=== PATIENT | male | born 2000 | race Hispanic/Latino ===

== ENCOUNTER 2020-02-22 08:19 | Emergency (ER) | payer SELFPAY ==
[2020-02-22] MEDS ORDERED: NA CHLORIDE 0.9% 1,000 ML ONE (08:39)
[2020-02-22] MEDS ORDERED: ONDANSETRON 4 MG/2 ML VIAL ONE (08:39)
[2020-02-22 08:55] LABS: Absolute Lymphocytes (CBC) 1.4 K/uL (0.7-4.9); Basophils % 0.4 % (0-1.3); Hematocrit 45.5 % (39.6-49.0); Lymphocytes % 17.4 % (15.3-44.8); MPV 8.5 fL (7.6-11.3); RBC Red Blood Cell Count 5.49 M/uL (4.33-5.43)
[2020-02-22 08:59] LABS: Protime INR 0.94
[2020-02-22 09:23] LABS: ALT/SGPT 36 U/L (12-78); AST/SGOT 26 U/L (15-37); Albumin 4.5 g/dL (3.4-5.0); Alkaline Phosphatase 82 U/L (45-117); BUN Blood Urea Nitrogen 9 mg/dL (7-18); Bicarbonate 25 mmol/L (21-32); Bilirubin Direct < 0.1 mg/dL (0-0.2); Bilirubin Total 0.1 mg/dL (0.2-1.0); Glucose Level 119 mg/dL (74-106); Protein, Total 8.9 g/dL (6.4-8.2); Sodium Level 140 mmol/L (136-145)
--- NOTE | 2020-02-22 09:50 | ER ---
Nurse's Notes [facility] Name: Fernando Lugo Age: 19 yrs Sex: Male : 2000 Arrival Date: 02/22/2020 Time: 08:20 Bed 5 Private MD: Diagnosis: Alcohol abuse with intoxication Presentation: 02/21 08:21 Chief complaint: EMS states: pts friends states that since 8pm last night they were tw2 drinking 24+ cans of beer and 8+ cans of twisted teas, friends called cause he was unresponsive, there was vomit all over the ground, he was unresponsive when we were loading him up, got him down stairs and strapped in the back then he woke up and started talking to us, vs stable. Coronavirus screen: At this time, the client does not indicate any symptoms associated with coronavirus-19. Ebola Screen: Patient denies travel to an Ebola-affected area in the 21 days before illness onset. 08:21 Method Of Arrival: EMS: [facility] tw2 08:23 Initial Sepsis Screen: Does the patient meet any 2 criteria? No. Patient's initial tw2 sepsis screen is negative. Does the patient have a suspected source of infection? No. Patient's initial sepsis screen is negative. Risk Assessment: Do you want to hurt yourself or someone else? Patient reports no desire to harm self or others. Onset of symptoms was February 22, 2020. 08:23 Acuity: [place] 3 tw2 Triage Assessment: 08:25 General: Appears in no apparent distress. Behavior is cooperative, talkative. Pain: tw2 Denies pain. GI: Reports "i can handle my alcohol, i am not going to be sick" emesis back placed on bedside table at this time. Historical: - Allergies: 08:24 No Known Allergies; tw2 - Home Meds: 08:24 None [Active]; tw2 - PMHx: 08:24 None; tw2 - Immunization history:: Adult Immunizations. - Social history:: Smoking status: . Screenin:10 Abuse screen: Denies threats or abuse. Nutritional screening: No deficits noted. tw2 Tuberculosis screening: No symptoms or risk factors identified. Fall Risk Secondary diagnosis (15 points) impaired mobility. Assessment: 08:20 General: Appears in no apparent distress. Behavior is cooperative. Pain: Denies pain. tw2 Neuro: Level of Consciousness is awake, alert, obeys commands, Oriented to person, situation. Cardiovascular: Heart tones S1 S2 Patient's skin is warm and dry. Respiratory: Airway is patent Respiratory effort is even, unlabored, Respiratory pattern is regular, symmetrical, Breath sounds are clear bilaterally. GI: Abdomen is flat, Bowel sounds present X 4 quads. : EENT: No signs and/or symptoms were reported regarding the EENT system. Derm: Musculoskeletal: Circulation, motion, and sensation intact. Range of motion: intact in all extremities. 09:08 Reassessment: Patient appears in no apparent distress at this time. No changes from tw2 previously documented assessment. Patient and/or family updated on plan of care and expected duration. Pain level reassessed. pts sister is at bedside at this time. 10:09 Reassessment: Patient appears in no apparent distress at this time. No changes from tw2 previously documented assessment. Patient and/or family updated on plan of care and expected duration. Pain level reassessed. Vital Signs: 08:21 BP 130 / 93; Pulse 99; Resp 17; Temp 98.7(TE); Pulse Ox 100% on R/A; tw2 09:07 BP 100 / 81; Pulse 91; Resp 17; Pulse Ox 100% on R/A; tw2 10:09 BP 106 / 59; Pulse 88; Resp 17; Pulse Ox 99% on R/A; tw2 ED Course: 08:20 Patient arrived in ED. tw2 08:20 Placed in gown. Bed in low position. Call light in reach. quality assurance monitor final on. Pulse ox tw2 on. NIBP on. Warm blanket given. 08:21 Amy Godfrey FNP-C is PHCP. kb 08:21 Gerardo Wolfe MD is Attending Physician. kb 08:23 Triage completed. tw2 08:24 Arm band placed on. tw2 08:45 EKG done, by ED staff, reviewed by Amy NGUYEN. sv 08:48 Initial lab(s) drawn, by ok, sent to lab. Inserted saline lock: 20 gauge in right hand, em1 using aseptic technique. Blood collected. 08:55 Ibeth Perez RN is Primary Nurse. tw2 10:10 No provider procedures requiring assistance completed. IV discontinued, intact, tw2 bleeding controlled, No redness/swelling at site. Pressure dressing applied. Administered Medications: 08:55 Drug: NS 0.9% 1000 ml Route: IV; Rate: 1000 ml; Site: right hand; tw2 10:09 Follow up: Response: No adverse reaction; IV Status: Completed infusion; IV Intake: tw2 1000ml 08:55 Drug: Zofran (Ondansetron) 4 mg Route: IVP; Site: right hand; tw2 10:10 Follow up: Response: No adverse reaction; Nausea is decreased tw2 09:45 CANCELLED (Duplicate Order): NS 0.9% 1000 ml IV at 1000 ml once kb Intake: 10:09 IV: 1000ml; Total: 1000ml. tw2 Outcome: 09:49 Discharge ordered by . kb 10:10 Discharged to home ambulatory, with family. tw2 10:10 Condition: stable 10:10 Discharge instructions given to patient, family, Instructed on discharge instructions, follow up and referral plans. Demonstrated understanding of instructions, follow-up care. 10:11 Patient left the ED. tw2 Signatures: Amy Godfrey, SUPER[employer]OR [employer]-C [employer]-Bianca Sam, RN RN Silas Liz em1 Ibeth Perez RN RN tw2 Corrections: (The following items were deleted from the chart) 10:10 08:20 Pulse ox on. NIBP on. tw2 tw2
--- NOTE | 2020-02-22 09:50 | EDPHYS ---
Physician Documentation [facility] Name: Fernando Lugo Age: 19 yrs Sex: Male : 2000 Arrival Date: 02/22/2020 Time: 08:20 Bed 5 Private MD: ED Physician Gerardo Wolfe HPI: 02/21 09:46 This 19 yrs old Male presents to ER via EMS with complaints of Vomiting, kb alcohol abuse. 09:46 The patient presents to the emergency department with nausea, vomiting. Onset: The kb symptoms/episode began/occurred just prior to arrival. Possible causes: alcohol. The symptoms are aggravated by nothing. The symptoms are alleviated by nothing. Associated signs and symptoms: Pertinent positives: nausea, vomiting, Pertinent negatives: abdominal pain, anorexia, belching, constipation, diarrhea, dysuria, fever, flatulence, GI bleeding, hematuria. Severity of symptoms: At their worst the symptoms were moderate in the emergency department the symptoms are unchanged. The patient has not experienced similar symptoms in the past. The patient has not recently seen a physician. EMS called for unresponsive pt. EMS reports pt was unresponsive when they arrived on scene, but woke up after getting him into ambulance. Pt and friends report pt has been drinking alcohol since 1999 last night. Pt has been vomiting as well. Pt obviously under the influence of alcohol. Pt has no complaints. . Historical: - Allergies: 08:24 No Known Allergies; tw2 - Home Meds: 08:24 None [Active]; tw2 - PMHx: 08:24 None; tw2 - Immunization history:: Adult Immunizations. - Social history:: Smoking status: . ROS: 09:46 Constitutional: Negative for fever, chills, and weight loss, Cardiovascular: Negative kb for chest pain, palpitations, and edema, Respiratory: Negative for shortness of breath, cough, wheezing, and pleuritic chest pain, Abdomen/GI: Negative for abdominal pain, nausea, vomiting, diarrhea, and constipation, Back: Negative for injury and pain, MS/Extremity: Negative for injury and deformity, Skin: Negative for injury, rash, and discoloration, Neuro: Negative for headache, weakness, numbness, tingling, and seizure. Exam: 08:47 Constitutional: This is a well developed, well nourished patient who is awake, alert, kb and in no acute distress. Head/Face: Normocephalic, atraumatic. Chest/axilla: Normal chest wall appearance and motion. Nontender with no deformity. No lesions are appreciated. Cardiovascular: Regular rate and rhythm with a normal S1 and S2. No gallops, murmurs, or rubs. Normal PMI, no JVD. No pulse deficits. Respiratory: Lungs have equal breath sounds bilaterally, clear to auscultation and percussion. No rales, rhonchi or wheezes noted. No increased work of breathing, no retractions or nasal flaring. Abdomen/GI: Soft, non-tender, with normal bowel sounds. No distension or tympany. No guarding or rebound. No evidence of tenderness throughout. Back: No spinal tenderness. No costovertebral tenderness. Full range of motion. Skin: Warm, dry with normal turgor. Normal color with no rashes, no lesions, and no evidence of cellulitis. MS/ Extremity: Pulses equal, no cyanosis. Neurovascular intact. Full, normal range of motion. Neuro: Awake and alert, GCS 15, oriented to person, place, time, and situation. Cranial nerves II-XII grossly intact. Motor strength 5/5 in all extremities. Sensory grossly intact. Cerebellar exam normal. Normal gait. 08:47 ECG was reviewed by the Attending Physician. Vital Signs: 08:21 BP 130 / 93; Pulse 99; Resp 17; Temp 98.7(TE); Pulse Ox 100% on R/A; tw2 09:07 BP 100 / 81; Pulse 91; Resp 17; Pulse Ox 100% on R/A; tw2 10:09 BP 106 / 59; Pulse 88; Resp 17; Pulse Ox 99% on R/A; tw2 MDM: 08:21 Patient medically screened. kb 09:45 Data reviewed: vital signs, nurses notes. Data interpreted: Pulse oximetry: on room air kb is 100 %. Interpretation: normal. Counseling: I had a detailed discussion with the patient and/or guardian regarding: the historical points, exam findings, and any diagnostic results supporting the discharge/admit diagnosis, lab results, the need for outpatient follow up, a family practitioner, to return to the emergency department if symptoms worsen or persist or if there are any questions or concerns that arise at home. ED course: Older sister at bedside. Will take pt home and monitor until he maya up. Pt awake, alert and talking. No distress. A\T\Ox4. 02/21 08:21 Order name: Acetaminophen; Complete Time: 09:25 kb 02/21 08:21 Order name: Basic Metabolic Panel; Complete Time: 09:25 kb 02/21 08:21 Order name: CBC with Diff; Complete Time: 09:15 kb 02/21 08:21 Order name: ETOH Level; Complete Time: 09:25 kb 02/21 08:21 Order name: Hepatic Function; Complete Time: 09:25 kb 02/21 08:21 Order name: PT-INR; Complete Time: 09:15 kb 02/21 08:21 Order name: Ptt, Activated; Complete Time: 09:15 kb 02/21 08:21 Order name: Salicylate; Complete Time: 09:39 kb 02/21 08:21 Order name: EKG; Complete Time: 08:22 kb 02/21 08:21 Order name: EKG - Nurse/Tech; Complete Time: 08:45 kb 02/21 08:21 Order name: IV Saline Lock; Complete Time: 08:48 kb 02/21 08:21 Order name: Labs collected and sent; Complete Time: 08:48 kb EC:47 Rate is 94 beats/min. Rhythm is regular. QRS [place] is Normal. TX interval is normal at kb 184 msec. QRS interval is normal at 96 msec. QT interval is normal at 358 msec. Administered Medications: 08:55 Drug: NS 0.9% 1000 ml Route: IV; Rate: 1000 ml; Site: right hand; tw2 10:09 Follow up: Response: No adverse reaction; IV Status: Completed infusion; IV Intake: tw2 1000ml 08:55 Drug: Zofran (Ondansetron) 4 mg Route: IVP; Site: right hand; tw2 10:10 Follow up: Response: No adverse reaction; Nausea is decreased tw2 09:45 CANCELLED (Duplicate Order): NS 0.9% 1000 ml IV at 1000 ml once kb Disposition: 10:42 Co-signature as Attending Physician, Gerardo Wolfe MD. rn Disposition: 02/22/20 09:49 Discharged to Home. Impression: Alcohol abuse with intoxication. - Condition is Stable. - Discharge Instructions: Alcohol Intoxication, [id number]. - Medication Reconciliation Form, Thank You Letter, Antibiotic Education, Prescription Opioid Use form. - Follow up: Emergency Department; When: As needed; Reason: Worsening of condition. Follow up: Private Physician; When: 2 - 3 days; Reason: Recheck today's complaints, Continuance of care, Re-evaluation by your physician. Signatures: Dispatcher [employer] EDMS EpifanioAntonioAmy, BREANNA-C BRIDGE CONSTRUCTION INSPECTOR-Ckb Gerardo Wolfe MD MD rn PerezIbeth RN RN tw2 Corrections: (The following items were deleted from the chart) 09:45 09:40 NS 0.9% 1000 ml IV at 1000 ml once ordered. kb kb 10:11 09:49 02/22/2020 09:49 Discharged to Home. Impression: Alcohol abuse with intoxication. tw2 Condition is Stable. Forms are Medication Reconciliation Form, Thank You Letter, Antibiotic Education, Prescription Opioid Use. Follow up: Emergency Department; When: As needed; Reason: Worsening of condition. Follow up: Private Physician; When: 2 - 3 days; Reason: Recheck today's complaints, Continuance of care, Re-evaluation by your physician. kb
[2020-02-22 10:15] VITALS: TEMP 98.7
[2020-02-22 10:22] VITALS: BP 106/59; O2SAT 99
--- NOTE | 2020-02-22 12:16 | EKG ---
Test Date: 2020-02-22 Test Time: 08:40:13 Cell[employer]ane Press Operator: KARL MEASUREMENT RESULTS: Intervals: Rate: 94 MT: 184 QRSD: 96 QT: 358 QTc: 447 [place]: P: 61 MT: 184 QRS: 79 T: 28 INTERPRETIVE STATEMENTS: Normal sinus rhythm Normal ECG No previous ECG available for comparison Electronically Signed On 02-22-20 12:14:59 CDT by Randall Naranjo
== END 2020-02-22 10:11 | disposition home or self-care (01) ==
LOC: ER 08:19
DX: F10.129 Alcohol abuse with intoxication, unspecified (principal)
CPT/HCPCS: 36415; 80048; 80076; 80320; 80329; 85025; 85610; 85730; 93005; 96361; 96374; 99284; J2405; J7030